=== PATIENT | male | born 1975 | race Caucasian/White ===

== ENCOUNTER → 2021-12-17 | Outpatient (CLI) | payer OTHER ==
[~2021-12-17] MED LIST: CETI5SOL3 PO
== END ==
LOC: M LABSMTC 09:50
PROVIDERS: ATTEND Anesthesiology
DX: Z01.812 Encounter for preprocedural laboratory examination (principal); Z20.822 Contact with and (suspected) exposure to COVID-19

== ENCOUNTER 2021-12-22 11:01 | Day surgery (SDC) | payer OTHER ==
[~2021-12-22] VITALS: Ht 182.9 cm; Wt 96.7 kg
[2021-12-22] MEDS ORDERED: NS 1,000 ML IV ONE (12:00)
[2021-12-22] MEDS ORDERED: propofoL 200 MG/20 ML VIAL As Ordered ONE (12:57)
[2021-12-22] MEDS ORDERED: LIDOCAINE 2% 100MG/5ML SDV (FOR ANES.) As Ordered ONE (12:57)
[2021-12-22 14:01] VITALS: BP 137/79
== END 2021-12-22 14:02 | disposition home or self-care (01) ==
LOC: M OPP 11:01
PROVIDERS: ATTEND Internal Medicine Gastroenterology
DX: Z12.11 Encounter for screening for malignant neoplasm of colon (principal); K64.0 First degree hemorrhoids; Z79.899 Other long term (current) drug therapy

== ENCOUNTER → 2023-10-04 | Outpatient (REF) | payer OTHER | LOC: M SFHCDERM 17:53 | PROVIDERS: ATTEND Physician Assistant | DX: L72.11 Pilar cyst (principal) ==